=== PATIENT | male | born 1990 | race Caucasian/White ===

== ENCOUNTER 2020-06-06 17:58 | Emergency (ER) | payer OTHER ==
[2020-06-06] MEDS ORDERED: Bacitracin/Neomycin/Polymyxin B Oint 0.9 GM U/D Packet TOP ONE (18:12)
[2020-06-06] MEDS ORDERED: Diphtheria,Pertussis(Acell),Tetanus Vaccine 0.5 ML SDV IM ONE (18:15)
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
== END 2020-06-06 18:35 | disposition home or self-care (01) ==
LOC: LL.ED 17:58
DX: T25.221A Burn of second degree of right foot, initial encounter (principal); X19.XXXA Contact with other heat and hot substances, initial encounter
CPT/HCPCS: 99283

== ENCOUNTER 2021-12-17 20:39 | Emergency (ER) | payer BC, OTHER ==
[2021-12-17 21:58] LABS: ANION GAP 10.6 meq/L (7-15); CHLORIDE,CL 103 mmol/L (98-107); SODIUM,NA 139 mmol/L (136-145)
[2021-12-17] MEDS ORDERED: Sodium Chloride 0.9% 1,000 ML IV ONE (22:13)
== END 2021-12-17 22:40 | disposition home or self-care (01) ==
LOC: LL.ED 20:39
DX: E86.0 Dehydration (principal)
CPT/HCPCS: 36415; 71046; 80053; 81003; 83735; 83880; 84484; 85025; 85379; 93005; 93010; 99284; 99284-25